=== PATIENT | female | born 1955 | race Caucasian/White ===

== ENCOUNTER → 2024-12-03 | Outpatient (CLI) | payer OTHER, MEDICARE, SELFPAY ==
[2024-12-03 11:21] LABS: Basophils % (Auto) 1 % (0-2.5); Eosinophils # (Auto) 0.1 Thou/mm3 (0.0-0.5); Eosinophils % (Auto) 1 % (0-10); Hematocrit 41.9 % (36.0-46.0); Immature Granulocytes % (Auto) 1 % (0-0); Immature Granulocytes Auto 0.03 Thou/mm3 (0.00-0.00); Lymphocytes % (Auto) 46 % (10-50); Mean Corpuscular HGB Conc 33.4 g/dl (31.0-37.0); Mean Corpuscular Volume 93 fL (80-100); Monocytes # (Auto) 0.4 Thou/mm3 (0.0-0.8); Monocytes % (Auto) 7 % (0-12); Neutrophils % (Auto) 45 % (37-80); Nucleated Red Blood Cell % 0 /100 WBC (0); Platelet Count 248 Thou/mm3 (140-440); RDW Standard Deviation 42.3 fL (36.4-46.3); Red Blood Count 4.51 Miln/mm3 (4.00-5.20); White Blood Count 6.6 Thou/mm3 (3.6-11.0)
[2024-12-03 11:38] LABS: Anion Gap 10 (7-16); BUN/Creatinine Ratio 19 Ratio (12-20); Blood Urea Nitrogen 17 mg/dL (9-23); Calcium 9.1 mg/dL (8.3-10.6); Carbon Dioxide 24.8 mMol/L (20.0-31.0); Chloride 107 mMol/L (98-107); Creatinine (Component) 0.9 mg/dL (0.6-1.3); Glucose 100 mg/dL (74-106); Osmolality,Calculated 284 (275-295); Potassium 4.1 mMol/L (3.4-5.1); Sodium 142 mMol/L (136-145); eGFR > 60 See Note
[2024-12-03 11:39] LABS: Alanine Aminotransferase 17 U/L (10-49); Albumin, Serum 4.1 gm/dL (3.4-4.8); Albumin/Globulin Ratio 1.6 (1.2-2.2); Alkaline Phosphatase 91 U/L (46-116); Aspartate Amino Transferase 18 U/L (0-34); Bilirubin,Total 0.7 mg/dL (0.3-1.2); Calcium (Corrected) 9.1 mg/dL (8.5-10.1); Cardiac Risk Estimate 5.3 RATIO (3.7-5.6); Cholesterol 249 mg/dL (132-200); Globulin 2.5 gm/dL (2.3-3.5); HDL Cholesterol 47 mg/dL (40-60); LDL Cholesterol,Calculated 147 mg/dL (0-130); Magnesium 1.9 mg/dL (1.6-2.6); Phosphorous 3.3 mg/dL (2.4-5.1); Total Protein 6.6 gm/dL (5.7-8.2); Triglycerides 277 mg/dL (30-150)
[2024-12-03 11:44] LABS: Vitamin B12 191 pg/mL (211-911)
[2024-12-07 06:43] LABS: T3,Total* 109 ng/dL (76-181)
== END | disposition home or self-care (01) ==
PROVIDERS: PCP Internal Medicine; Referring Provider Internal Medicine; Visit Provider Internal Medicine
DX: I47.11 Inappropriate sinus tachycardia, so stated (principal)
CPT/HCPCS: 36415; 80053; 80061; 82306; 82607; 83735; 84100; 84480; 85025

== ENCOUNTER → 2025-06-15 | Outpatient (CLI) | payer OTHER, MEDICARE, SELFPAY ==
--- NOTE | 2025-06-15 14:07 | XR_ITS ---
Examination: Knee, left , 3 views Technique: Knee AP, lateral, oblique 3 views Date and time of exam: June 11 [id number] hours INDICATIONS: Left knee pain and swelling 8 years Patient fell today FINDINGS: Moderate to advanced tricompartment osteoarthritis, most severe medial joint space No fracture Moderate knee effusion No dislocation IMPRESSION: No fracture
== END | disposition home or self-care (01) ==
PROVIDERS: PCP Internal Medicine; Referring Provider Internal Medicine; Visit Provider Internal Medicine
DX: M25.562 Pain in left knee (principal)
CPT/HCPCS: 73562